=== PATIENT | female | born 1955 | race American Indian/Alaskan Native ===

== ENCOUNTER 2018-03-18 11:12 | Emergency (ER) | payer MEDICAID ==
[2018-03-18 11:26] VITALS: BP 150/90
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
== END 2018-03-18 13:13 | disposition home or self-care (01) ==
LOC: ED 11:12
DX: S40.021A Contusion of right upper arm, initial encounter (principal); I10 Essential (primary) hypertension; M19.90 Unspecified osteoarthritis, unspecified site; F17.200 Nicotine dependence, unspecified, uncomplicated; F10.920 Alcohol use, unspecified with intoxication, uncomplicated; Z86.19 Personal history of other infectious and parasitic diseases; W51.XXXA Accidental striking against or bumped into by another person, initial encounter; Y93.89 Activity, other specified; Y92.89 Other specified places as the place of occurrence of the external cause; Y99.8 Other external cause status
CPT/HCPCS: 99283